=== PATIENT | male | born 1940 | race Caucasian/White ===

== ENCOUNTER 2024-02-12 09:11 | Day surgery (SDC) | payer MEDICARE, BC ==
[2024-02-11 14:45] LABS: BASOPHILS # (AUTO) 0.1 X10'3 (0-0.2); BASOPHILS % (AUTO) 0.5 % (0-1); EOSINOPHILS % (AUTO) 0.1 % (0-6); LYMPHOCYTES # (AUTO) 0.8 X10'3 (1.1-4.8); LYMPHOCYTES % (AUTO) 4.4 % (21-51); MEAN CORPUSCULAR HEMOGLOBIN 28.5 PG (27.0-31.0); MEAN CORPUSCULAR HGB CONC 32.8 g/dL (33.0-36.5); MEAN CORPUSCULAR VOLUME 86.9 FL (78-98); MONOCYTES % (AUTO) 5.9 % (2-12); NEUTROPHILS # (AUTO) 15.4 X10'3 (1.8-7.7); NEUTROPHILS % (AUTO) 89.1 % (42-75); PRE OP HEMATOCRIT 36.4 % (42.0-52.0); PRE OP PLATELET COUNT 404 X10'3 (140-440); RED BLOOD COUNT 4.19 X10'6 (4.70-6.10); RED CELL DISTRIBUTION WIDTH 14.8 % (11.5-14.5)
[2024-02-11 14:48] LABS: PRE OP WHITE BLOOD COUNT 17.3 10'3 (4.8-10.8)
[2024-02-11 15:03] LABS: ALBUMIN 1.9 G/DL (3.4-5.0); ALBUMIN/GLOBULIN RATIO 0.4 (1.1-1.5); ALKALINE PHOSPHATASE 91 IU/L (46-116); BLOOD UREA NITROGEN 33 MG/DL (7-18); CHLORIDE 97 MMOL/L (99-107); PRE OP ALT 19 U/L (30-65); PRE OP ANION GAP 7 (8-16); PRE OP AST 27 U/L (10-37); PRE OP BILIRUB, TOTAL 0.5 MG/DL (0.0-1.0); PRE OP GLUCOSE 138 MG/DL (70-104); PRE OP POTASSIUM 4.1 MMOL/L (3.4-5.1); PRE OP SODIUM 134 MMOL/L (135-145); TOTAL PROTEIN 6.9 G/DL (6.4-8.2); eGFR 64 ML/MIN
[2024-02-12] VITALS (19 sets, daily range): BP systolic 89–111; BP diastolic 48–66; PULSE 56–91; RESP 14–19; TEMP 98.3; O2SAT 92–100
[~2024-02-12] VITALS: Ht 348 cm; Wt 74.8 kg
[~2024-02-12 09:11] MED LIST: ASPI-1265 PO; ATOR10TA PO; CALC-723 PO; CHOL50004 PO; EMPA1TAB PO; FLO0.4C PO; FURO-150 PO; GABA300C PO; GLUC-131 PO; LEVO100T PO; METF-900 PO; NITRO QUICK PO; PSYL0.4C2 PO; TETR15DR26 OP; VALS1TAB7 PO; VIT1CAPS9 PO; WARF3TAB PO
[2024-02-12] MEDS: ringers solution, lacted 1,000 ML IV SCH (10:05)
[2024-02-12] MEDS: famotidine 20mg tablet PO ONE (10:06)
[2024-02-12] MEDS ORDERED: sevoflurane 250ml liquid IH ONE (10:30)
[2024-02-12] MEDS ORDERED: fentaNYL/PF 50MCG/1 ML 2ML syringe ONE (10:39)
[2024-02-12] MEDS ORDERED: midazolam 1 mg/ML 2ml injection ONE (10:39)
[2024-02-12] MEDS ORDERED: dexamethasone sod phosphate 4mg/ml inj. ONE ×2 (10:50→11:09)
[2024-02-12 10:52] LABS: PROTHROMBIN TIME 57.6 SECONDS (9.0-12.0)
[2024-02-12 11:01] LABS: PRE OP PARTIAL THROMB. TIME 65 SECONDS (22-32)
[2024-02-12] MEDS ORDERED: propofol inj 20 ML IV ONE (11:07)
[2024-02-12] MEDS ORDERED: rocuronium 10mg/ml inj IV ONE (11:07)
[2024-02-12] MEDS ORDERED: ondansetron/PF 4mg/2ml inj ONE (11:08)
[2024-02-12] MEDS ORDERED: glycopyrrolate 0.2mg/ml inj ONE (11:09)
[2024-02-12] MEDS ORDERED: phenylephrine 10mg/ml inj. -priapism dosing ONE (11:17)
[2024-02-12] MEDS ORDERED: albumin (Human) 5% 250ml 250 ML IV ONE ×2 (11:29→12:12)
[2024-02-12] MEDS ORDERED: ondansetron/PF 4mg/2ml inj IV PRN (12:05)
[2024-02-12] MEDS ORDERED: morphine 4 MG/ML inj SYRINge IV PRN (12:05)
[2024-02-12] MEDS ORDERED: labetalol 20mg/4ml (5mg/ml) syringe IV PRN (12:05)
[2024-02-12] MEDS ORDERED: ringers solution, lacted 1,000 ML IV SCH (12:05)
[2024-02-12] MEDS ORDERED: morphine 2 MG/ML inj. syringe IV PRN (12:05)
[2024-02-12] MEDS ORDERED: hydrALAZINE 20mg/ml inj. IV PRN (12:05)
== END 2024-02-12 15:35 | disposition home or self-care (01) ==
LOC: PAS 09:11
PROVIDERS: ATTEND Internal Medicine Critical Care Medicine
DX: R22.2 Localized swelling, mass and lump, trunk (principal); I10 Essential (primary) hypertension; E11.9 Type 2 diabetes mellitus without complications; I25.10 Atherosclerotic heart disease of native coronary artery without angina pectoris; I48.91 Unspecified atrial fibrillation; Z85.89 Personal history of malignant neoplasm of other organs and systems; Z95.1 Presence of aortocoronary bypass graft; Z98.890 Other specified postprocedural states
CPT/HCPCS: 31629; 31653; 36415; 71250; 80053; 82948; 85025; 85610; 85730; 87015; 87070; 87102; 87116; 87206; 93005; 94760; J1100; J2250; J2370; J2405; J2704; J3010; J3490; J7050; J7120; P9045; Z7506; Z7508; Z7512; 31622; 31624; 31625; 31626; 31627; 31628; 31654; 88172; 88173; 88305; 88341; 88342; A4615; A4618